=== PATIENT | male | born 1950 | race Caucasian/White ===

== ENCOUNTER 2024-12-11 12:48 | Emergency (ER) | payer MEDICARE, SELFPAY ==
[2024-12-11 12:51] VITALS: BP 169/70
[2024-12-11 12:57] VITALS: BP 169/70
[2024-12-11 12:57] LABS: Glucose - Point of Care 146 mg/dl (70-99)
[2024-12-11 13:02] VITALS: BMI 27.4
--- NOTE | 2024-12-11 13:18 | ED.GENMED ---
History of Present Illness
General
Chief Complaint: Fall
Time Seen by Provider: 12/11/24 13:18
History of Present Illness
History of Present Illness:
FOCUSED PAST MEDICAL HISTORY
- Former alcohol abuse
REVIEW OF OLD RECORDS
- No old records available for review in [facility]
Note:
CHIEF COMPLAINT(S)
Fall with potential cognitive decline.
HISTORY OF PRESENT ILLNESS
The patient is a 74-year-old male residing with his sister, who is here to provide additional information. The main concern is cognitive decline that has become evident over the past year. The sister notes that the patient has not been officially
diagnosed with dementia due to insurance issues preventing him from seeing a neurologist. The patient has shown increased withdrawal from social interactions, obsessive television watching, and difficulties with memory, such as an inability to use
the TV remote or phone due to unfamiliarity and confusion with icons and numbers.
About three days ago, there was an acute change with a fall occurring on the past Monday in the kitchen. The patient could not explain the fall, largely due to difficulties in expression, resembling expressive aphasia. Another fall occurred today
while the patient was taking a walk to buy lottery tickets, resulting in the current admission. Preceding this, there was minor conflict over the patients desire to drive despite having had a 'bad day' cognitively yesterday.
ADDITIONAL HISTORY OBTAINED FROM SOURCES OTHER THAN THE PATIENT
Per the patients sister, the patient has had a declining cognitive status for over a year, with increasing memory issues, social withdrawal, and on occasions, expressive aphasia. She recounted a fall last winter that he did not report and two recent
falls, one in the kitchen three days ago and another today, leading to the current medical evaluation. The fall today was followed up by police and EMS response, who brought the patient to the facility.
CHRONIC MEDICAL CONDITIONS SIGNIFICANTLY AFFECTING CARE
The patient shows signs of dementia, although not officially diagnosed due to healthcare access issues related to insurance coverage.
SOCIAL DETERMINANTS AFFECTING HEALTH
The patients sister reported significant barriers to accessing specialized healthcare due to insurance coverage limitations. Additionally, financial constraints make paying for [id number] medical expenses challenging.
REVIEW OF SYSTEMS
- Neurological: Memory problems, difficulty using familiar devices, intermittent expressive aphasia.
- Musculoskeletal: Recent falls.
PHYSICAL EXAM
General: Alert, no acute distress.
Skin: Warm, dry.
Head: Normocephalic, atraumatic.
Neck: Supple, trachea midline.
Eye Ears, nose, mouth and throat: Oral mucosa moist.
Cardiovascular: Normal peripheral perfusion, No edema.
Respiratory: Respirations are non-labored.
Gastrointestinal: Abdomen nondistended.
Back: Normal range of motion, Normal alignment.
Musculoskeletal: Normal range of motion, normal strength.
Neurological: The patient has mild to moderate cognitive deficit, he struggles with stating his age, he could not name the month, his recent memory is fair
Psychiatric: Cooperative, appropriate mood & affect.
PLAN
The patient is to undergo a computed tomography (CT) scan of the head to rule out any intracranial bleed following the falls. Further evaluation of cognitive function and consideration for referral to neurology is recommended if access to
neurologist services can be obtained.
DIFFERENTIAL DIAGNOSIS
The Differential Diagnosis includes, in no particular order and is not limited to:
1. Alzheimers disease
2. Vascular dementia
3. Normal pressure hydrocephalus
4. Subdural hematoma
5. Lewy body dementia
6. Frontotemporal dementia
7. Delirium due to fall-related injury
8. Depression-related cognitive impairment
9. Medication side effects contributing to falls or cognition
10. Unclassified neurocognitive disorder
Disposition:
SUMMARY OF ENCOUNTER
The patient, a 74-year-old male with a history of cognitive decline over the past year, was seen in the emergency department due to recent falls and potential cognitive decline. A CT scan of the head was performed to rule out acute intracranial
events such as bleeding or mass lesions. The CT scan showed no signs of acute injury or significant abnormalities contributing to the patient�s cognitive decline. Blood work results were also reviewed and appeared within normal limits.
PLAN
The patient will be provided with contact information for local neurologists, including Dr. Brice and other potential specialists, to arrange a follow-up for a comprehensive neurological evaluation. In the interim, the patient does not require
hospital admission based on current findings.
MEDICAL DECISION MAKING
-Complexity of Data Reviewed: Chronic conditions affecting care include signs of dementia, though undiagnosed. Differential diagnosis includes Alzheimers disease, vascular dementia, normal pressure hydrocephalus, subdural hematoma, Lewy body
dementia, frontotemporal dementia, delirium due to fall-related injury, depression-related cognitive impairment, medication side effects contributing to falls or cognition, and unclassified neurocognitive disorder.
-Data:
Category [address] scan of the head was independently interpreted, revealing no acute findings such as bleeding or mass.
Clinical information was obtained from an independent historian, specifically the patient�s sister, regarding cognitive changes and fall incidents.
Category 3
Discussion of management with a neurologist, Dr. Brice, occurred to facilitate referral to neurology for further assessment.
Care significantly affected by Social Determinants of Health: Limited access to specialized healthcare due to insurance coverage constraints and financial limitations impacting the ability to pay [id number] expenses.
DIAGNOSIS
- Cognitive decline, unspecified (ICD-10: R41.9)
- Recurrent falls (ICD-10: R29.6)
RADIOLOGY
- CAT scan of the brain shows no acute abnormality
LABS
- CBC and chemistries relatively unremarkable
UPDATE
- At sisters recommendation I did tell the patient that I recommend no further driving; will give contact information for local neurologist.
Phy Exam
Physical Exam
Physical Exam:
See HPI
Course
Orders/Labs/Results
Orders:
Orders
12/11/24 13:03
CT Head W/o Iv Contrast Urgent
Comment:
Reason For Exam: fall, unknown head strike
12/11/24 13:10
Alcohol Urgent
Complete Blood Count/With Diff Urgent
Comprehensive Metabolic Panel Urgent
12/11/24 13:38
Thiamine Injection 200 mg IV NOW STA
Abnormal Lab Results
12/11/24 12/11/24
12:56 13:10
RBC 4.17 L 10^6/uL
(4.70-6.10)
Hct 38.1 L %
(39.0-52.0)
MCH 33.1 H pg
(27.0-31.0)
Lymphocytes % 17.3 L %
(20.5-51.1)
Glucose 121 H mg/dl
(70-99)
POC Glucose 146 H mg/dl
(70-99)
12/11/24 13:10
12/11/24 13:10
Vital Signs
Initial and Last Documented VS:
Initial Vital Signs
Temp Pulse Resp BP Pulse Ox
36.7 C 64 16 169/70 96
12/11/24 12:51 12/11/24 12:51 12/11/24 12:51 12/11/24 12:51 12/11/24 12:51
Last Documented Vital Signs
Temp Pulse Resp BP Pulse Ox
36.7 C 64 16 169/70 97
12/11/24 12:51 12/11/24 12:51 12/11/24 12:51 12/11/24 12:51 12/11/24 13:25
*Pulse Oximetry
SaO2: 96
Oxygen Mode of Delivery: Room air
Patient hypoxic: no
*Critical Care Note
Total Time (30-74mins, 75-104mins- exclusive of procedures): Not Applicable
ED Attending Note
-
Portions of this chart may have been created with voice recognition software.� Occasional wrong word or��sound alike� substitutions may have occurred due to the inherent limitations of voice recognition software.
Discharge Plan
Departure
Patient Disposition: Home (Routine Discharge)
Date of Disposition: 12/11/24
Time of Disposition: 14:49
Patient with high blood pressure during this ER visit?: Yes
Discharge Problem:
Declining functional status
Referrals:
Sharon De Los Santos MD [Non-Admitting Privileges, Neurology]
Aaron Brice MD [Active, Neurology]
Activity Restrictions/Additional Instructions:
No driving for now. Follow-up your primary care doctor and I also gave you the contact information for local neurologist. CAT scan of the brain shows no bleeding. Basic blood work is unremarkable. Alcohol is undetected.
Interventions
Interventions:
*Risk Screen - Suicide Last Done: 12/11/24 12:51
*General Assessment Last Done: 12/11/24 12:51
*Neglect/Abuse Screening Last Done: 12/11/24 12:51
*ED- Fall Risk Assessment Last Done: 12/11/24 13:02
*ED COVID-19 Vaccine History Last Done: 12/11/24 13:02
*ED Influenza Vaccine History Last Done: 12/11/24 13:02
ED-Musculoskeletal Assessment Last Done: 12/11/24 13:25
ED- Neurological Assessment Last Done: 12/11/24 13:25
ED-Skin Assessment Last Done: 12/11/24 13:25
Discharge Date and Time
Print Language: CHINESE
[2024-12-11 13:27] LABS: Hematocrit 38.1 % (39.0-52.0); Hemoglobin 13.8 g/dL (13.0-18.0); Mean Corp Hgb Conc. 36.2 g/dL (33.0-37.0); Mean Corpuscular Volume 91.4 fL (80.0-94.0); Nucleated Red Blood Cells % 0 % (-); Platelet Count 195 10^3/uL (130-400); Red Cell Dist. Width 12.6 % (11.5-14.5)
[2024-12-11 13:37] LABS: ALT (SGPT) 20 U/L (0-50); AST (SGOT) 20 U/L (17-59); Albumin 4.0 g/dl (3.5-5.0); Alkaline Phosphatase 53 U/L (38-126); Blood Urea Nitrogen 19 mg/dl (9-20); Calcium 8.7 mg/dl (8.4-10.2); Carbon Dioxide 26 mmol/L (22-30); Chloride 107 mmol/L (98-107); Estimated Creatinine Clearance 90 ml/min; Glucose 121 mg/dl (70-99); Potassium 4.0 mmol/L (3.5-5.1); Sodium 135 mmol/L (135-145); Total Protein 6.7 g/dl (6.3-8.2); eGFR > 60.00
[2024-12-11 14:00] VITALS: BP 157/66
[2024-12-11] MEDS: THIAMINE INJECTION 200 MG IV (14:22)
[2024-12-11 15:00] VITALS: BP 130/71
== END 2024-12-11 15:10 | disposition home or self-care (01) ==
LOC: EMR 12:48
PROVIDERS: EMERGENCY PHYSICIAN Emergency Medicine; FAMILY PHYSICIAN Internal Medicine
DX: Z04.3 Encounter for examination and observation following other accident (principal); W19.XXXA Unspecified fall, initial encounter; R29.6 Repeated falls; R41.9 Unspecified symptoms and signs involving cognitive functions and awareness; R47.01 Aphasia; Z59.869 Financial insecurity, unspecified
CPT/HCPCS: 99284; 96374; 70450; 80053; 82077; 82962; 85025